=== PATIENT | female | born 2005 | race Two or more races ===

== ENCOUNTER 2025-03-04 00:07 | Emergency (ER) | payer BC, OTHER ==
[~2025-03-04] VITALS: Ht 175.3 cm; Wt 77.1 kg
--- NOTE | 2025-03-04 00:41 | ED.PDOC ---
Eye-HPI HPI Comments C/C of ear ache and congestion for three weeks. Pt states she was treated by her PCP, and prescribed ear drops, but has not had relief. No discharge or odor. VSS Chief Complaint: Earache Time Seen by MD: 00:16 Reviewed Notes: Nurses Notes, Medications, Allergies Allergies: Coded Allergies: Azithromycin (Verified Allergy, Severe, 03/04/25) Information Source: Patient Mode of Arrival: Ambulatory Past Medical History PAST MEDICAL HISTORY: Denies Surgical History: Denies all surgeries PATIENT EDUCATOR History: No Pertinent PATIENT EDUCATOR History Family History Family History: Unknown Social History Smoker: Non-Smoker Alcohol: Denies ETOH Use Drugs: Denies Drug Use Constitutional: denies: chills, diaphoresis, fatigue, fever, malaise, sweats, weakness, others EENTM: reports: ear pain; denies: blurred vision, double vision, ear bleeding, ear discharge, ear drainage, ear ringing, eye pain, eye redness, hearing loss, mouth pain, mouth swelling, nasal discharge, nose bleeding, nose congestion, nose pain, photophobia, tearing, throat pain, throat swelling, voice changes, others Respiratory: denies: cough, hemoptysis, orthopnea, SOB at rest, shortness of breath, SOB with excertion, stridor, wheezing, others Cardiovascular: denies: chest pain, dizzy spells, diaphoresis, Dyspnea on exertion, edema, irregular heart beat, left arm pain, lightheadedness, palpitations, PND, syncope, others Gastrointestinal: denies: abdomen distended, abdominal pain, blood streaked bowels, constipated, diarrhea, dysphagia, difficulty swallowing, hematemesis, melena, nausea, poor appetite, poor fluid intake, rectal bleeding, rectal pain, vomiting, others Genitourinary: denies: abnormal vagina bleeding, burning, dyspareunia, dysuria, flank pain, frequency, hematuria, incontinence, pain, , vagina discharge, urgency, others Neurological: denies: dizziness, fainting, headache, left sided numbness, left sided weakness, numbness, paresthesia, pre-existing deficit, right sided numbness, right sided weakness, seizure, speech problems, tingling, tremors, weakness, others Musculoskeletal: denies: back pain, gout, joint pain, joint swelling, muscle pain, muscle stiffness, neck pain, others Integumetry: denies: bruises, change in color, change in hair/nails, dryness, laceration, lesions, lumps, rash, wounds, others Allergic/Immunocompromised: denies: Difficulty Healing, Frequent Infections, Hives, Itching, others Hematologic/Lymphatic: denies: anemia, blood clots, easy bleeding, easy bruising, swollen glands, others Endocrine: denies: excessive hunger, excessive sweating, excessive thirst, excessive urination, flushing, intolerance to cold, intolerance to heat, unexplained weight gain, unexplained weight loss, others Psychiatric: denies: anxiety, bipolar disorder, depression, hopeless, panic disorder, schizophrenia, sleepless, suicidal, others Physical Exam General Appearance: No Apparent Distress, Normal HEENT: Pharynx Normal, TMs Normal, Other (RIGHT EAR IMPACTION) Neck: Full Range of Motion, Non-Tender, Normal, Normal Inspection Respiratory: Chest Non-Tender, Lungs Clear, No Accessory Muscle Use, No Respiratory Distress, Normal Breath Sounds Cardiovascular: No Edema, No JVD, No Murmur, No Gallop, Normal Peripheral Pulses, Regular Rate/Rhythm Breast Exam: Deferred Gastrointestinal: No Organomegaly, Non Tender, No Pulsatile Mass, Normal Bowel Sounds, Soft Genitalia: Deferred Pelvic: Deferred Rectal: Deferred Extremities: No calf tenderness, Normal capillary refill, Normal inspection, Normal range of motion, Non-tender, No pedal edema Musculoskeletal : Apperance: Normal Neurologic: Alert, photo retoucher II-XII nml as Tested, No Motor Deficits, Normal Affect, Normal Mood, No Sensory Deficits Cerebellar Function: Normal Reflexes: Normal Skin: Dry, Normal Color, Warm Lymphatic: No Adenopathy Was a procedure done? Was a procedure done?: Yes Sedation Sedation?: No Informed consent obtained: Yes Foreign Body Removal Foreign body in: Ear Anesthetic: Nothing Prep: Saline Procedure: Removed (WAX REMOVED TM INTACT NO ERYTHEMA OR EDEMA) Informed consent obtained: Yes Risks/benefits/alt described: Yes Notes PATIENT TOLERATED WELL EENT DIFF Eye: N/A Ear: Cerumen Impaction, Foreign Body, Otitis Externa, Otitis Media, Perforation, Pharyngitis X-Ray, Labs, Meds, VS Vital Signs Date Time Temp Pulse Resp B/P (MAP) Pulse Ox O2 Delivery O2 Flow Rate FiO2 03/04/25 00:19 98.2 70 16 131/79 (96) 99 98.2 Time of 1ST Reevaluation: 00:40 Reevaluation 1ST: Unchanged Time of 2ND Reevaluation: 04:05 Reevaluation 2ND: Improved Patient Education/Counseling: Diagnosis, Treatment, Prognosis, Need For Follow Up Family Education/Counseling: Diagnosis, Treatment, Prognosis, Need For Follow Up Departure 1 Departure Time of Disposition: 04:05 Impression: Primary Impression: Right ear impacted cerumen Disposition: 01 HOME / SELF CARE / HOMELESS Condition: Stable Discharged With: Self Critical Care Note Critical Care Time?: No Stability Stability form required: VIOLETTA Moise March 04, 2025 00:41
[2025-03-04] MEDS ORDERED: CARB6.5S44 RIGHT EAR (04:23)
[2025-03-04] MEDS ORDERED: COROSUS RIGHT EAR (04:35)
[2025-03-04 04:59] VITALS: BP 129/78; TEMP 98.2
[2025-03-04 05:00] VITALS: PULSE 72; RESP 18; O2SAT 98
== END 2025-03-04 05:01 | disposition home or self-care (01) ==
LOC: ER 00:07
DX: H61.21 Impacted cerumen, right ear (principal); Z88.1 Allergy status to other antibiotic agents
CPT/HCPCS: 69210